=== PATIENT | female | born 2000 ===

== ENCOUNTER 2024-05-03 10:06 | Outpatient (REF) | payer BC, SELFPAY ==
--- NOTE | 2024-05-03 12:00 | PAPFT_PTH ---
PATIENT: Lonnie Wolfe LOC: [facility] U#:[id number] AGE/SX: 24/F ROOM: RE05/03/[address]: Estela Thomas : 2000 BED: DIS: 05/03/2024 SPEC #: [id number] RECD: 05/04/24 17:38 STATUS: HERIBERTO REQ #: [id number] AZEEM: 05/03/24 12:[address]: Estela Thomas DEPT: [facility] Cytology RECD BY: Raissa Cintron ENTERED: 05/04/24 17:38 SP TYPE: PAPFT OTHR DR: Unknown,Unknown Tissues: 1 - CX/ENDOCX FOR PAP SMEARS Procedures: PAP THIN PREP/[facility] Screening Comments: [id number] (CHLAMYDIA/GC)
[2024-05-07 15:43] LABS: Chlamydia Result Negative (Negative); GC Result Negative (Negative)
== END 2024-05-03 10:07 | disposition home or self-care (01) ==
LOC: LBN 10:06
PROVIDERS: Visit Provider Naturopath
DX: N76.0 Acute vaginitis (principal); Z12.4 Encounter for screening for malignant neoplasm of cervix; B96.89 Other specified bacterial agents as the cause of diseases classified elsewhere
CPT/HCPCS: 87491; 87591; 88142; 87480; 87510; 87660